=== PATIENT | male | born 1940 | race Caucasian/White ===

== ENCOUNTER → 2016-10-25 | Outpatient (CLI) | payer MEDICARE, OTHER ==
--- NOTE | 2016-10-26 10:41 | RAD ---
EXAM DESCRIPTION: Shoulder,Left 2 or More Views CLINICAL HISTORY: 76 years,Male,PAIN COMPARISON: None FINDINGS: The left shoulder demonstrates no evidence of fractures or dislocations or acute abnormalities. The acromial clavicular joint mild hypertrophy. The included lung gatica are unremarkable. There is mild lateral down sloping of the acromion with mild narrowing of the supraspinatus outlet. Severe loss of glenohumeral joint space with severe osteophyte changes erosion of the humeral head subchondral sclerosis. IMPRESSION: Markedly severe left glenohumeral joint osteoarthritis. Cannot exclude avascular necrosis. Mild AC joint arthritis. Some mild narrowing of the suprasellar space outlet due to lateral downsloping of the acromion which can lead to chronic rotator cuff injury. Electronically signed by: Mayito Burgos MD 10/26/2016 10:41 AM CDT
== END ==
LOC: RAD 13:27
PROVIDERS: ATTEND Orthopaedic Surgery
DX: M25.512 Pain in left shoulder (principal); M19.012 Primary osteoarthritis, left shoulder

== ENCOUNTER → 2016-12-11 | Outpatient (CLI) | payer MEDICARE, OTHER | END | disposition home or self-care (01) | LOC: GMAL 11:35 | PROVIDERS: ATTEND Family Medicine | DX: Z12.5 Encounter for screening for malignant neoplasm of prostate (principal) ==

== ENCOUNTER → 2017-06-20 | Outpatient (CLI) | payer MEDICARE, OTHER | END | disposition home or self-care (01) | LOC: GMAL 10:37 | PROVIDERS: ATTEND Family Medicine | DX: D51.3 Other dietary vitamin B12 deficiency anemia (principal); R53.83 Other fatigue; E55.9 Vitamin D deficiency, unspecified ==

== ENCOUNTER → 2017-07-18 | Outpatient (CLI) | payer MEDICARE, OTHER | END | disposition home or self-care (01) | LOC: GMAL 10:31 | PROVIDERS: ATTEND Family Medicine | DX: D53.9 Nutritional anemia, unspecified (principal); R94.5 Abnormal results of liver function studies ==

== ENCOUNTER → 2017-07-20 | Outpatient (CLI) | payer MEDICARE, OTHER ==
--- NOTE | 2017-07-20 11:56 | US ---
EXAM DESCRIPTION: Abdomen,Complete CLINICAL HISTORY: 76 years Male, ELEVATED LFT'S COMPARISON: None. TECHNIQUE: Standard transabdominal technique: Two-dimensional and Doppler modes. FINDINGS: Abdominal aorta mid segment 2.5 cm. Proximal and distal unremarkable. Minimal atherosclerotic irregularity. Normal ultrasound of the pancreas and duct. Multiple stones in the gallbladder; echogenic and acoustic shadowing. Largest diameter 3.9 mm. No wall thickening or surrounding fluid. Nontender with transducer pressure. Dilated common bile duct 8.1 mm. Liver right lobe long axis is 15.3 cm. Normal echogenicity except for well-defined hyperechoic region with minimal acoustic shadowing measuring 3.9 x 1.7 x 1.6 cm. Smooth capsule no ascites. Normal ultrasound of the bilateral kidneys except for minimal cortical thinning. No hydronephrosis. Long axis of right kidney 10 cm in long axis of the left kidney 9.9 cm. No perirenal fluid. Normal echoes of the spleen, measures 11.2 cm long axis. IMPRESSION: 1. Multiple mobile stones in the gallbladder with no wall thickening and no tenderness during scanning. 2. Dilated common bile duct, cannot rule out partial obstruction by small stones or gravel. Normal intrahepatic ducts. Normal pancreatic duct. 3. Calcification versus hemangioma in the left lobe of the liver. Consider follow-up triple phase liver scan without and with IV contrast. Electronically signed by: Mitul Pascual MD 07/20/2017 11:55 AM [facility]
== END | disposition home or self-care (01) ==
LOC: US 08:00
PROVIDERS: ATTEND Family Medicine
DX: R94.5 Abnormal results of liver function studies (principal)

== ENCOUNTER → 2017-07-26 | Outpatient (CLI) | payer MEDICARE, OTHER ==
--- NOTE | 2017-07-27 10:54 | CT ---
EXAM DESCRIPTION: CT ABDOMEN AND PELVIS WITHOUT AND WITH CONTRAST CLINICAL HISTORY: ELEVATED LFT'S, DILATED COMMON BILE DUCT COMPARISON: July 20, 2017 TECHNIQUE: CT of the abdomen and pelvis are performed prior to and during IV bolus administration of 100 mL of Isovue 300. Oral contrast media is administered as well. FINDINGS: The lung bases are clear of infiltrate. Liver is normal in size and parenchymal appearance. Bile ducts not dilated by CT. Several calcified gallstones in the gallbladder which is otherwise unremarkable. Spleen, pancreas, and kidneys are unremarkable. There is no lymphadenopathy, inflammation, or free fluid observed. IMPRESSION: Cholelithiasis No bile duct dilatation observed. This exam was performed according to our departmental dose-optimization program, which includes automated exposure control, adjustment of the mA and/or kV according to patient size and/or use of iterative reconstruction technique. Electronically signed by: Darrell Nguyen MD 07/27/2017 10:53 AM [employer]
== END ==
LOC: CT 08:30
PROVIDERS: ATTEND Family Medicine
DX: R94.5 Abnormal results of liver function studies (principal); K80.20 Calculus of gallbladder without cholecystitis without obstruction

== ENCOUNTER → 2017-08-02 | Outpatient (CLI) | payer MEDICARE, OTHER ==
--- NOTE | 2017-08-06 08:08 | MRI ---
EXAM DESCRIPTION: Abdomen CLINICAL HISTORY: 76 years Male, NONSPEC ELEV OF LEVELS OF TRANSAMINASES LACTIC ACID COMPARISON: Recent CT examination July 26, 2017, recent abdominal sonogram July 20, 2017 TECHNIQUE: Multiplanar multisequence noncontrast imaging of the abdomen. FINDINGS: The gallbladder is normally distended without acute inflammation with numerous filling defects noted within the gallbladder consistent with the known cholelithiasis. Biliary ductal system is small and normal intrahepatically and extrahepatically without evidence of obstruction or definite filling defect. Multilocular but otherwise benign-appearing cyst medially involving the upper pole of the left kidney is noted. The aorta is tortuous but nonaneurysmal. The pancreas is normal in contour without signal abnormalities or significant ductal dilation. The liver is normal in size and a discrete focal mass particularly in the left lobe of the liver is not apparent. A tiny three or 4 mm cortical cyst along the capsule at the junction of the right and left lobes of the liver are noted and not considered clinically significant. The spleen is upper normal in size at approximately 10 or 11 cm. No abdominal ascites or renal hydronephrosis or definite retroperitoneal adenopathy is seen. Moderate cardiomegaly in the lower chest is evident. IMPRESSION: 1. Cholelithiasis without acute changes of cholecystitis or intrahepatic or extrahepatic ductal dilation 2. Septated but otherwise benign-appearing approximate 2 cm cyst upper pole of the left kidney. 3. Essentially normal appearance of the liver with tiny capsular cyst at the junction of the right and left lobes anteriorly less than 5 mm in size. 4. A specific lesion within the left lobe of the liver is not identified. 5. Cardiomegaly. Electronically signed by: Rufino Mallory MD 08/06/2017 8:07 AM [facility]
== END ==
LOC: MRI 13:00
PROVIDERS: ATTEND Internal Medicine Gastroenterology
DX: R74.0 Nonspecific elevation of levels of transaminase and lactic acid dehydrogenase [LDH] (principal); R93.2 Abnormal findings on diagnostic imaging of liver and biliary tract; K80.20 Calculus of gallbladder without cholecystitis without obstruction; N28.1 Cyst of kidney, acquired

== ENCOUNTER → 2017-10-04 | Outpatient (CLI) | payer MEDICARE, OTHER ==
--- NOTE | 2017-10-04 17:16 | MRI ---
EXAM: MRI LUMBAR SPINE WITHOUT CONTRAST CLINICAL HISTORY: 77 years, Male, LOW BACK PAIN, left-sided, sometimes radiates down left leg. No injury COMPARISON: CT abdomen from July 26, 2017 TECHNIQUE: Multiplanar, multisequence MRI lumbar spine without IV contrast FINDINGS: No fracture or subluxation. The lumbar vertebral bodies have normal height, and alignment. There is no worrisome marrow signal abnormality. Small endplate Schmorl's nodes seen at multiple levels. The conus terminates normally at T12/L1. The paravertebral soft tissues are within normal limits. Disc spaces, spinal canal, and neural foramina: T12-L1. Only seen on sagittal view with mild disc height loss, mild posterior disc bulging causing mild central canal and mild bilateral neural foraminal narrowing L1-L2. Mild disc desiccation and disc height loss. Marked posterior disc bulging, facet arthropathy and ligamentum flavum enfolding with resultant mild central canal and moderate bilateral neural foraminal narrowing. L2-L3. Mild disc height loss and moderate posterior disc bulging, facet arthropathy and ligamentum flavum enfolding. Commissural findings consistent mild to moderate central canal and moderate bilateral neuroforaminal narrowing L3-L4. Mild disc height loss and moderate posterior disc bulging. Facet arthropathy and moderate ligamentum flavum infolding. Combination findings causes moderate to marked central canal and moderate bilateral neuroforaminal narrowing L4-L5. Mild disc height loss and posterior disc bulging. Moderate facet arthropathy and ligamenta flava infolding. Combination of findings causes moderate central canal and moderate bilateral neural foraminal narrowing. L5-S1. Disc height loss with a small central and right foraminal disc protrusions. Mild ligamentum flavum infolding and facet arthropathy. No significant central canal narrowing. Mild to moderate right neural frontal narrowing and mild left neural foraminal narrowing. IMPRESSION: Moderate to marked Multilevel degenerative changes with resultant central canal and neuroforaminal narrowing, worse at L3-4 and L4-5 as described. Electronically signed by: Jam Coyne MD 10/04/2017 5:15 PM CDT
== END | disposition home or self-care (01) ==
LOC: MRI 13:00
PROVIDERS: ATTEND Family Medicine
DX: M54.5 Low back pain (principal)

== ENCOUNTER → 2018-08-07 | Outpatient (CLI) | payer MEDICARE, OTHER | LOC: GMAL 10:27 | PROVIDERS: ATTEND Family Medicine | DX: D51.3 Other dietary vitamin B12 deficiency anemia (principal); R53.83 Other fatigue; E55.9 Vitamin D deficiency, unspecified ==

== ENCOUNTER → 2019-04-01 | Outpatient (CLI) | payer MEDICARE, OTHER | LOC: GMAL 10:25 | PROVIDERS: ATTEND Family Medicine | DX: Z12.5 Encounter for screening for malignant neoplasm of prostate (principal); I10 Essential (primary) hypertension; Z79.899 Other long term (current) drug therapy ==

== ENCOUNTER → 2019-04-02 | Outpatient (CLI) | payer MEDICARE, OTHER ==
--- NOTE | 2019-04-03 12:43 | MRI ---
EXAM DESCRIPTION: Brain w/o Contrast: MRI. CLINICAL HISTORY: MEMORY LOSS COMPARISON: None. TECHNIQUE: Multiplanar, high-field MRI unit, multiple diffusion sequences, multiple conventional sequences without contrast. FINDINGS: Bilateral and fluid hyperintense FLAIR and T2-weighted signal in the periventricular white matter/pettit radiata within the frontal parietal and occipital lobes. Larger tract involvement abutting the occipital horns. More involvement abutting the left frontal horn. Extending to the bilateral centrum semiovale. Bilateral smaller subcortical white matter lesions in these lobes. No hemorrhage, no cerebral edema, no mass-effect. No diffusion restriction. Normal signal in the bilateral basal ganglia. Normal signal signal in the brainstem and cerebellar hemispheres. Concordance of the diffusion and non-diffusion sequences with no diffusion restriction. Cortical sulci, ventricles, and other CSF spaces, and the subdural spaces are normally configured for the patient's age. No effacement or displacement. No midline shift. No extra-axial hemorrhage. Normal flow signal void in the major vessels of the [place], and the venous sinuses. IACs are symmetric bilaterally. Normal signal in the bilateral mastoid air cells. No mass effect in the bilateral cerebellopontine angles. Pituitary gland occupies all of the sella. Base of the cerebellar tonsils is at the level of the foramen magnum. Minimal mucoperiosteal thickening in the paranasal sinuses. Minimal edema in the distal right optic nerve sheath abutting the optic globe. The bony calvarium is intact. IMPRESSION: 1. Nonspecific diffuse white matter lesions in the bilateral periventricular white matter, centrum semiovale, and subcortical white matter frontal parietal and occipital lobes. Most likely age-related and/or cerebral microvascular disease. No hemorrhage, no mass effect, no diffusion restriction. Basal ganglia, midbrain, and posterior fossa unremarkable. 2. No diffusion restriction elsewhere in the brain. Minimal edema in the distal right optic nerve sheaths abutting the right optic globe is most likely age-related unless there are clinical findings. Electronically signed by: Mitul Pascual MD 04/03/2019 12:41 PM CDT
== END ==
LOC: MRI 13:00
PROVIDERS: ATTEND Family Medicine
DX: R41.81 Age-related cognitive decline (principal); R90.82 White matter disease, unspecified; H47.10 Unspecified papilledema